=== PATIENT | female | born 1955 | race Asian ===

== ENCOUNTER → 2020-01-02 10:49 | Outpatient (CLI) | payer OTHER, MEDICAID, SELFPAY ==
--- NOTE | 2020-01-02 10:53 | DI.RAD.S_ITS ---
PROCEDURE: XR RIBS LT MIN 3V W CXR1V INDICATIONS: left rib pain TECHNIQUE: 2 views of the left ribs were acquired, along with a single view chest. COMPARISON: None. FINDINGS: Surgical changes and devices: None. Bones and chest wall: No fractures or dislocations. No suspicious bony lesions. Overlying soft tissues appear unremarkable. Lungs and pleura: No pleural effusions or pneumothorax. Lungs appear clear. Mediastinum: Mediastinal contours appear normal. Heart size is normal. IMPRESSION: No fracture found, no osteolytic or blastic lesion identified. Dictated by: Jayjay Kirkland M.D. on 01/02/2020 at 11:24 Approved by: Jayjay Kirkland M.D. on 01/02/2020 at 11:25
[2020-01-02 12:18] LABS: Hematocrit 34.7 % (36-46); Hemoglobin 11.2 g/dL (12.0-16.0); Mean Corpuscular HGB Conc 32.4 % (30-36); Mean Corpuscular Hemoglobin 20.7 PG (26-34); Mean Corpuscular Volume 63.7 fL (80-100); Platelet Count 291 X10^3/uL (150-400); Red Blood Cell Count 5.44 X10^6/uL (4.0-5.2); Red Cell Distribution Width 16.8 % (11.6-14.8); White Blood Cell Count 4.7 X10^3/uL (4.5-11.0)
[2020-01-02 12:21] LABS: Add Manual Diff / Slide Review YES
[2020-01-02 12:50] LABS: Neutrophils Absolute Manual 2209 /uL (3000-5900); Total Cells Counted 100
[2020-01-02 12:51] LABS: Anisocytosis 2+; Hypochromasia 3+; Microcytosis 2+; Ovalocytes 4+; Platelet Estimate Adequate on smear; Poikilocytosis 2+
[2020-01-02 13:09] LABS: Alanine Aminotransferase 25 IU/L (<35); Albumin 4.5 g/dL (3.5-5.0); Albumin Globulin Ratio 1.3 (1.0-2.8); Alkaline Phosphatase 63 U/L (38-126); Aspartate Aminotransferase 37 IU/L (14-36); BUN Creatinine Ratio 27.3 (6-22); Bilirubin Total 0.7 mg/dL (0.2-1.3); Blood Urea Nitrogen 15 mg/dL (7-17); Calcium 9.1 mg/dL (8.4-10.2); Carbon Dioxide 29 mmol/L (22-32); Chloride 105 mmol/L (98-107); Cholesterol 188 mg/dL (140-199); Estimated Glomerular Filt Rate > 60.0 mL/min (>60); Globulin 3.4 g/dL (1.7-4.1); Glucose 103 mg/dL (80-110); HDL Cholesterol 49 mg/dL (40-60); HEMOLYSIS < 15 (0-50); LDL Cholesterol Calculated 121 mg/dL (<100); Potassium 3.6 mmol/L (3.4-5.1); Sodium 140 mmol/L (137-145); Total Protein 7.9 g/dL (6.3-8.2); Triglycerides 91 mg/dL (35-150)
[2020-01-02 14:20] LABS: Appearance Urine UA CLEAR; Bilirubin Urine UA NEGATIVE (NEGATIVE); Color Urine UA YELLOW; Glucose Urine UA NEGATIVE (Negative); Ketones Urine UA NEGATIVE (NEGATIVE); Leukocyte Esterase Urine UA NEGATIVE (NEGATIVE); Nitrite Urine UA NEGATIVE (Negative); Occult Blood Urine UA TRACE-LYSED (Negative); Protein Urine UA NEGATIVE (Negative); Specific Gravity Urine UA <=1.005 (1.000-1.035); Urobilinogen Urine UA 0.2 E.U./dL (0.2); pH Urine UA 6.5 (4.5-8.0)
== END ==
PROVIDERS: Referring Provider Registered Nurse; Visit Provider Registered Nurse
DX: Z00.00 Encounter for general adult medical examination without abnormal findings (principal); R07.81 Pleurodynia; E78.5 Hyperlipidemia, unspecified
CPT/HCPCS: 36415; 71101; 80053; 80061; 81003; 85025

== ENCOUNTER → 2020-01-17 09:52 | Outpatient (CLI) | payer OTHER, MEDICAID, SELFPAY | PROVIDERS: PCP Registered Nurse; Referring Provider Registered Nurse; Visit Provider Registered Nurse | DX: M81.0 Age-related osteoporosis without current pathological fracture (principal); Z78.0 Asymptomatic menopausal state | CPT/HCPCS: 77080 ==

== ENCOUNTER → 2020-01-20 09:52 | Outpatient (CLI) | payer OTHER, MEDICAID, SELFPAY ==
--- NOTE | 2020-01-20 09:53 | DI.MG.S_ITS ---
BILATERAL DIGITAL SCREENING MAMMOGRAM 3D/2D WITH CAD: 01/20/2020 CLINICAL: Routine screening. Comparison is made to exams dated: 07/09/2014 mammogram, 11/26/2004 mammogram, and 10/23/2003 mammogram - [facility]. The tissue of both breasts is extremely dense, which lowers the sensitivity of mammography. Current study was also evaluated with a Computer Aided Detection (CAD) system. There is a benign calcification in the right breast. No significant masses, calcifications, or other findings are seen in either breast. There has been no significant interval change. IMPRESSION: BENIGN There is no mammographic evidence of malignancy. A 1 year screening mammogram is recommended. This exam was interpreted at Station ID: [id number]. NOTE: For mammograms, a report in lay terms will be sent to the patient. Approximately 15% of breast malignancies will not be visualized mammographically. In the management of a palpable breast mass, a negative mammogram must not discourage biopsy of a clinically suspicious lesion. Electronically Signed By: Thierno Hammond acr/lisa:01/21/2020 14:48:50 letter sent: Normal Exam ACR BI-RADS Category 2: Benign Finding(s) 3342F
== END ==
PROVIDERS: PCP Registered Nurse; Referring Provider Registered Nurse; Visit Provider Registered Nurse
DX: Z12.31 Encounter for screening mammogram for malignant neoplasm of breast (principal)
CPT/HCPCS: 77063; 77067

== ENCOUNTER → 2020-02-15 09:29 | Outpatient (CLI) | payer OTHER, MEDICAID, SELFPAY ==
[2020-02-15 11:20] LABS: COVID19 -Nasal RAPID Negative (Negative)
== END ==
PROVIDERS: PCP Registered Nurse; Visit Provider Surgery
DX: Z01.812 Encounter for preprocedural laboratory examination (principal); Z20.828 Contact with and (suspected) exposure to other viral communicable diseases
CPT/HCPCS: 87635; 99211

== ENCOUNTER 2020-02-16 06:47 | Day surgery (SDC) | payer OTHER, MEDICAID, SELFPAY ==
--- NOTE | 2020-02-16 | PATH_ITS ---
[facility] Accession Number: [id number] . 01 Material submitted: . body - POLYP AT 35 CM . 02 Diagnosis: Colon, Polyp at 35 cm, Biopsy: Tubular adenoma in one of two fragments. Hyperplastic polyp in one fragment. MRV 02/19/2020 1454 Local . 02 Electronically signed: . Blessing Adorno MD, Pathologist NPI- [id number] . 01 Gross description: . POLYP AT 35 CM: Received in formalin are 2 fragment(s) of goss, soft tissue measuring 0.3 x 0.3 x 0.3 cm to 0.3 x 0.2 x 0.1 cm submitted entirely in 1 cassette(s) /QBJ 02/17/2020 0648 Local . 02 Pathologist provided ICD-10: D12.6 . 02 CPT . 508000 Performed at: 01 [facility] [address] [facility], [place], [place] [id number] MD Manuel Oleary MD Phone: [phone] Performed at: 02 [facility] [address] [place], [place] [id number] MD Blessing Adorno MD Phone: [phone]
[2020-02-16 07:17] VITALS: BP 128/82; PULSE 68; RESP 16; TEMP 37.2; O2SAT 100; BMI 19.1
--- NOTE | 2020-02-16 07:42 | P.HP_ITS ---
History of Present Illness History of Present Illness Date Patient Seen: 02/16/20 Time Patient Seen: 07:42 Chief complaint: SDC Narrative: This is a 64-year-old woman who has never had a screening colonoscopy. Her daughter is here an access her customer service supervisor. She denies any symptoms of melena, hematochezia, unexplained weight loss, unexplained abdominal pain. She denies any family history of colon polyps or colon cancers. She is otherwise well, and denies any significant medical problems. She takes alendronate for osteoporosis, but is not on any other medications. She denies any history of heart or respiratory problems. She has never had sedation or any procedures. Her daughter denies any family history of difficulty with sedation or anesthesia. ROS Thirteen system review is otherwise negative other than as mentioned below and in HPI. PE: GENERAL: Well groomed and cooperative. Appears stated age. Vital signs noted. HENT: Normocephalic, atraumatic. Hearing intact. EYES: Conjunctiva pink, sclera white, no periorbital swelling. CARDIOVASCULAR: Regular rate. No pedal edema. RESPIRATORY: Non-tachypneic, breathing comfortably on room air. GASTROINTESTINAL: Abdomen soft and non-distended GENITALURINARY: No flank tenderness. MUSCULOSKELETAL: Equal tone and mass bilaterally. SKIN: Warm, dry, soft, appropriate color for ethnicity. No other lesions, rashes, or wounds. NEURO: Alert and Oriented X 3. No gross sensory deficits, or cognitive issues. Patient History Surgical History History of tubal ligation (~2017) Family & Social History Social History: household members spouse Tobacco & Substance use: Smoking Status Never smoker alcohol intake never Substance Use Type does not use Meds Home Medications and Allergies Home Medications Medication Instructions Recorded Confirmed Type alendronate 70 mg tablet 70 mg PO QWEEK 90 Days #13 tab 01/29/20 02/16/20 Rx Allergies Allergy/AdvReac Type Severity Reaction Status Date / Time No Known Drug Allergies Allergy Verified 01/22/20 10:28 Exam Vital Signs (past 8 hours): - 02/16/20 07:17 Temperature 99.0 F Pulse Rate 68 Respiratory Rate 16 Blood Pressure 128/82 Pulse Oximetry 100 Oxygen Delivery Method Room Air Assessment & Plan Assessment and plan (1) At average risk for colon cancer: Status: Acute Assessment & Plan narrative: Risks and benefits of screening colonoscopy and possible polypectomy were discussed with the patient with her daughter as customer service supervisor including risk of bleeding, perforation, need for additional procedures, risks of anesthesia. The patient desires to proceed with the colonoscopy procedure. COVID-19 COVID-19 status: Negative Result date/Date tested (Pos, Neg/Pending): 02/15/20 Time Spent With Patient Time with patient: 15-24 minutes Quality VTE Deep Vein Thrombosis/Pulmonary Embolism Present on Admission: No
[2020-02-16] MEDS: SODIUM CHLORIDE 0.9% 1,000 ML 200 ML IV (07:44)
[2020-02-16] MEDS: MIDAZOLAM 5 MG/5 ML VIAL IV (07:47)
[2020-02-16] MEDS: fentaNYL 250 MCG/5 ML INJ IV (07:47)
--- NOTE | 2020-02-16 07:48 | P.OP.ENDO_ITS ---
Operative Date/Time/Diagnoses Date of procedure: 02/16/20 Time of procedure: 07:48 Pre-op diagnosis: Average risk for colon cancer, never had a screening colonoscopy Post-op diagnosis: other (Two tiny polyps at 35 cm, benign-appearing) Procedure & Clinicians Study performed: Colonoscopy Procedural sedation performed by the endoscopist Polypectomy with cold forceps x2 Indications: Average risk for colon cancer, never had a screening, age 64 Surgeon: Celina Rouse Procedure Notes SCOAP/Timeout: Performed Procedure in detail: The patient was brought to the room and placed in left lateral decubitus position with all bony prominences padded. A time-out was performed and then the patient was given procedural sedation starting with 1 mg of Versed and 50 mcg of fentanyl. 3 mg of Versed and 125 micro g of fentanyl were given for the entire procedure. Vitals were monitored throughout the procedure and remained stable. Once adequately sedated, the procedure was begun. A rectal exam was performed revealing no abnormalities. The colonoscope was then introduced to the rectum and advanced to the cecum in the usual fashion. The cecum was identified by the appendiceal orifice, the mucosal tri- fold, and the ileocecal valve. The scope was then retracted while rotating side to side and examining each mucosal fold. Two small polyps were found at 35 cm in the sigmoid colon, and removed completely with cold forceps. [ At the conclusion of the procedure retroflexion was performed and small grade 1 internal hemorrhoids without stigmata of bleeding were seen. The scope was then withdrawn from the rectum the procedure was concluded. The patient tolerated the procedure well and was transferred to the PACU in stable condition. Scope withdrawal time: 8 Sedation minutes: 21 Findings: polyp Specimen(s): other (Two small polyps from 35 cm) Complications: none Impression: Normal colon, 2 small benign-appearing polyps from 35 cm Post-procedure Recommendations: Colonscopy in 10 years (So long as pathology is benign) Follow up: as needed Disposition: PACU
[2020-02-16 08:16] VITALS: BP 98/55; PULSE 53; RESP 14; TEMP 36.7; O2SAT 100
[2020-02-16 08:21] VITALS: BP 95/56; PULSE 61; RESP 16; O2SAT 99
[2020-02-16 08:26] VITALS: BP 96/55; PULSE 59; RESP 14; O2SAT 99
[2020-02-16 08:31] VITALS: BP 111/57; PULSE 63; RESP 14; O2SAT 100
[2020-02-16 08:34] VITALS: BP 101/59; PULSE 64; RESP 14; TEMP 36.6; O2SAT 98
== END 2020-02-16 08:49 | disposition home or self-care (01) ==
PROVIDERS: PCP Registered Nurse; Referring Provider Registered Nurse; Visit Provider Surgery
PROC: 0DJD8ZZ Inspection of Lower Intestinal Tract, Via Natural or Artificial Opening Endoscopic (ICD-10-PCS; CPT 45378; principal; 2020-02-16 07:45)
DX: Z12.11 Encounter for screening for malignant neoplasm of colon (principal); D12.6 Benign neoplasm of colon, unspecified; K64.0 First degree hemorrhoids
CPT/HCPCS: 45380; 99152; J2250; J3010

== ENCOUNTER → 2020-06-07 08:39 | Outpatient (CLI) | payer OTHER, MEDICAID, SELFPAY ==
[2020-06-07] MEDS: COVID-19 VACC #1, MRNA(MOD) 100 MCG/0.5 ML VIAL IM (08:52)
== END ==
PROVIDERS: PCP Registered Nurse; Visit Provider Internal Medicine
DX: Z23 Encounter for immunization (principal)
CPT/HCPCS: 0011A; 91301

== ENCOUNTER → 2020-07-05 09:09 | Outpatient (CLI) | payer OTHER, MEDICAID, SELFPAY ==
[2020-07-05] MEDS: COVID-19 VACC #2, MRNA(MOD) 100 MCG/0.5 ML VIAL IM (09:16)
== END ==
PROVIDERS: PCP Registered Nurse; Visit Provider Internal Medicine
DX: Z23 Encounter for immunization (principal)
CPT/HCPCS: 0012A; 91301

== ENCOUNTER → 2023-01-19 12:35 | Outpatient (CLI) | payer MEDICARE, MEDICAID, SELFPAY ==
--- NOTE | 2023-01-19 | DI.RAD.S_ITS ---
PROCEDURE: XR FOOT RT MIN 3V INDICATIONS: INJURY TECHNIQUE: 3 views of the foot were acquired. COMPARISON: None. FINDINGS: Bones: Widening of the Lisfranc joint. Small, approximately 3 millimeter bone fragment noted at the Lisfranc joint. Soft tissues: No tibiotalar joint effusion. Achilles tendon appears normal. IMPRESSION: Findings suspicious for Lisfranc injury. Recommend MRI of the foot for additional evaluation. Dictated by: Paloma Sams MD, PhD on 01/19/2023 at 13:29 Approved by: Paloma Sams MD, PhD on 01/19/2023 at 13:31
--- NOTE | 2023-01-19 | DI.RAD.S_ITS ---
PROCEDURE: XR ANKLE RT MIN 3V INDICATIONS: INJURY TECHNIQUE: 3 views of the ankle were acquired. COMPARISON: None. FINDINGS: Bones: No fractures or dislocations. Ankle mortise is normally aligned. No suspicious bony lesions. Soft tissues: No tibiotalar joint effusion. Achilles tendon appears normal. IMPRESSION: No fracture. No osseous lesion. If symptoms and/or clinical suspicion for pathology persists, further assessment with repeat radiographs (7-10 days) or advanced imaging (e.g. CT, MRI or bone scan) should be considered. Dictated by: Paloma Sams MD, PhD on 01/19/2023 at 13:28 Approved by: Paloma Sams MD, PhD on 01/19/2023 at 13:29
== END ==
PROVIDERS: PCP Family Medicine; Referring Provider Family Medicine; Visit Provider Family Medicine
DX: S99.921A Unspecified injury of right foot, initial encounter (principal); X58.XXXA Exposure to other specified factors, initial encounter
CPT/HCPCS: 73610; 73630

== ENCOUNTER → 2023-01-22 11:58 | Outpatient (CLI) | payer MEDICARE, MEDICAID, SELFPAY ==
--- NOTE | 2023-01-22 12:01 | DI.MRI.S_ITS ---
PROCEDURE: MR FOOT RT WO CON INDICATIONS: LISFRANC OF RIGHT FOOT TECHNIQUE: Noncontrast sagittal T1 spin echo and T2 fast spin echo with fat saturation, long-axis T1 spin echo and T2 fast spin echo with fat saturation, short-axis T1 spin echo and T2 fast spin echo with fat saturation through the forefoot. COMPARISON: [facility], CR, XR ANKLE RT MIN 3V, 01/19/2023, 13:44. [facility], CR, XR FOOT RT MIN 3V, 01/19/2023, 13:46. FINDINGS: There are findings consistent with significant Lisfranc injury involving the patient's midfoot involving the 1st through 4th tarsometatarsal joints. There is subluxation of the base of the 1st and 2nd metatarsal superiorly relative to the respective cuneiform bone. There is increased marrow edema present within the 3 cuneiform bones consistent with edema and areas of micro fracturing. There is also abnormal signal consistent with marrow edema involving the bases of the 2nd, 3rd, and 4th metatarsals. There is moderate edematous changes in the subcutaneous tissues of the forefoot. No loculated fluid collections or soft tissue masses are seen. There is mild to moderate increased signal within the muscular consistent with the acute injury. IMPRESSION: 1. Significant injury to the Lisfranc ligaments involving the 1st through 4th tarsometatarsal joints. 2. Subluxation of the base of the 1st and 2nd metatarsal superiorly relative to the respective cuneiform. 3. Marrow edema and and micro fracturing involving the cuneiform bones and bases of the 2nd 3rd and 4th metatarsals. 4. Moderate edematous changes in the subcutaneous tissues of the forefoot. 5. Mild to moderate increased signal within the musculature consistent with the acute injury. 6. If further evaluation for bony detail is of clinical concern a CT of the forefoot may be of further clinical value. Dictated by: Khari Bhatti M.D. on 01/22/2023 at 15:35 Approved by: Khari Bhatti M.D. on 01/22/2023 at 15:50
== END ==
PROVIDERS: PCP Family Medicine; Referring Provider Family Medicine; Visit Provider Family Medicine
DX: S93.326A Dislocation of tarsometatarsal joint of unspecified foot, initial encounter (principal); X58.XXXA Exposure to other specified factors, initial encounter
CPT/HCPCS: 73718

== ENCOUNTER → 2024-07-07 09:53 | Outpatient (CLI) | payer OTHER, MEDICAID, SELFPAY ==
[2024-07-07 11:18] LABS: Add Manual Diff / Slide Review NO; Basophils Absolute Auto 100 /uL (0-100); Basophils Percent Auto 1.7 % (0-2); Eosinophils Absolute Auto 100 /uL (0-450); Eosinophils Percent Auto 1.4 % (2-4); Hematocrit 35.3 % (36-46); Hemoglobin 11.6 g/dL (12.0-16.0); Lymphocytes Absolute Auto 1900 /uL (1100-4500); Lymphocytes Percent Auto 42.6 % (25-40); Mean Corpuscular HGB Conc 32.8 % (30-36); Mean Corpuscular Hemoglobin 20.7 PG (26-34); Mean Corpuscular Volume 63.2 fL (80-100); Monocytes Absolute Auto 400 /uL (0-900); Monocytes Percent Auto 9.6 % (3-14); Neutrophils Absolute Auto 2000 /uL (1500-7000); Neutrophils Percent Auto 44.7 % (50-75); Platelet Count 285 X10^3/uL (150-400); Red Blood Cell Count 5.57 X10^6/uL (4.0-5.2); Red Cell Distribution Width 16.7 % (11.6-14.8); White Blood Cell Count 4.4 X10^3/uL (4.5-11.0)
[2024-07-07 11:26] LABS: Hemoglobin A1C% w Est Avg Glu 5.3 % (4.0-6.0)
[2024-07-07 11:37] LABS: Alanine Aminotransferase 29 IU/L (<35); Albumin 4.5 g/dL (3.5-5.0); Albumin Globulin Ratio 1.7 (1.0-2.8); Alkaline Phosphatase 59 U/L (38-126); Aspartate Aminotransferase 41 IU/L (14-36); BUN Creatinine Ratio 22.6 (6-22); Blood Urea Nitrogen 14 mg/dL (7-17); Calcium 9.2 mg/dL (8.4-10.2); Carbon Dioxide 27 mmol/L (22-32); Chloride 103 mmol/L (98-107); Cholesterol 188 mg/dL (140-199); Estimated Glomerular Filt Rate > 60 mL/min (>60); Globulin 2.7 g/dL (1.7-4.1); Glucose 89 mg/dL (70-99); HDL Cholesterol 52 mg/dL (40-60); HEMOLYSIS < 15 (0-50); LDL Cholesterol Calculated 120 mg/dL (<100); Potassium 3.7 mmol/L (3.4-5.1); Sodium 139 mmol/L (137-145); Total Protein 7.2 g/dL (6.3-8.2); Triglycerides 79 mg/dL (35-150)
[2024-07-07 11:45] LABS: Anisocytosis 2+; Microcytosis 1+; Poikilocytosis 2+
[2024-07-07 11:46] LABS: Ovalocytes 3+
[2024-07-07 11:56] LABS: Vitamin D 25 Hydroxy (D3) 28.2 ng/mL (30.0-100.0)
[2024-07-07 12:07] LABS: Thyroid Stimulating Hormone 0.828 uIU/mL (0.47-4.68)
== END ==
PROVIDERS: PCP Family Medicine; Referring Provider Family Medicine; Visit Provider Family Medicine
DX: M81.0 Age-related osteoporosis without current pathological fracture (principal); Z00.00 Encounter for general adult medical examination without abnormal findings
CPT/HCPCS: 36415; 80053; 80061; 82306; 83036; 84443; 85025

== ENCOUNTER → 2024-07-14 09:36 | Outpatient (CLI) | payer OTHER, MEDICAID, SELFPAY ==
--- NOTE | 2024-07-14 09:37 | DI.RAD.S_ITS ---
PROCEDURE: XR DEXA AXIAL SKELETON INDICATIONS: OSTEOPOROSIS COMPARISON: [facility], CR, XR DEXA AXIAL SKELETON, 01/17/2020, 10:10. FINDINGS: Lumbar Spine: Bone mineral density 0.686 (previously 0.784) g/cm2, T score -3.0 (previously -3.2). Left Femoral Neck: Bone mineral density 0.574 (previously 0.698) g/cm2, T score -2.5 (previously -2.4). Left Hip: Bone mineral density 0.766 (previously 0.765) g/cm2, T score -1.4 (previously -1.9). Fracture Risk Calculation (when applicable): 10-year fracture risk of a major osteoporotic fracture 7.6 percent and of a hip fracture 1.6 percent. (T score greater or equal to -1.0 to: NORMAL) (T score from -1.1 to -2.4: OSTEOPENIA) (T score less than or equal to -2.5: OSTEOPOROSIS) IMPRESSION: Osteoporosis--- recommend repeat DEXA in 2 years or less for reassessment of response to treatment. Follow-up guidelines as follows: Osteoporosis: Consider a repeat DEXA and Vertebral Fracture Assessment (VFA) exam in 2 years or sooner if medically necessary, to reassess this patient's status. Osteopenia: Consider a repeat DEXA in 2-3 years to reassess this patient's status, or if there is a new clinical indication. Normal: Consider a repeat DEXA in 5 years or sooner, or if there is a new clinical indication. All treatment decisions require clinical judgment and consideration of individual patient factors, including patient preferences, comorbidities, previous drug use, risk factors not captured in the FRAX model (e.g., frailty, falls, vitamin D deficiency, increased bone turnover, interval significant decline in bone density ) and possible under- or over-estimation of fracture risk by FRAX. In addition, the NOF Guide recommends that FDA-approved medical therapies be considered in postmenopausal women and men age >= 50 years with a: * Hip or vertebral (clinical or morphometric) fracture * T-score of <=-2.5 at the spine or hip * Ten-year fracture probability by FRAX of >= 3% for hip fracture or >=20% for major osteoporotic fracture. Dictated by: Jona Ortiz M.D. on 07/14/2024 at 19:53 Approved by: Jona Ortiz M.D. on 07/14/2024 at 19:58
== END ==
PROVIDERS: PCP Family Medicine; Referring Provider Family Medicine; Visit Provider Family Medicine
DX: M81.8 Other osteoporosis without current pathological fracture (principal)
CPT/HCPCS: 77080